=== PATIENT | female | born 1950 | race Caucasian/White ===

== ENCOUNTER → 2016-06-05 | Outpatient (CLI) | payer MEDICARE, MEDICAID ==
[~2016-06-05] MED LIST: ASPI-515 PO; CYCL-259 PO; IBUP800T PO; LISI-167 PO; MECL25TA4 PO; SIMV40TA3 PO
== END | disposition home or self-care (01) ==
LOC: CFH 09:02
PROVIDERS: ATTEND Internal Medicine
DX: M19.032 Primary osteoarthritis, left wrist (principal); M25.561 Pain in right knee; M25.562 Pain in left knee
CPT/HCPCS: 73523

== ENCOUNTER → 2016-06-19 | Outpatient (CLI) | payer MEDICARE, MEDICAID | END | disposition home or self-care (01) | LOC: CFH 08:41 | PROVIDERS: ATTEND Internal Medicine | DX: Z12.31 Encounter for screening mammogram for malignant neoplasm of breast (principal); M81.0 Age-related osteoporosis without current pathological fracture | CPT/HCPCS: 77080; G0202 ==

== ENCOUNTER → 2017-04-12 | Outpatient (CLI) | payer MEDICARE, MEDICAID ==
[~2017-04-12] MED LIST changes: +ALBU18HF INH; +GABA-826 PO; +IBUP-1223 PO; -IBUP800T PO; +TRAM50TA2 PO
== END | disposition home or self-care (01) ==
LOC: CFH 07:31
PROVIDERS: ATTEND Internal Medicine
DX: G31.89 Other specified degenerative diseases of nervous system (principal); M47.892 Other spondylosis, cervical region; M48.02 Spinal stenosis, cervical region; R20.2 Paresthesia of skin; M79.602 Pain in left arm
CPT/HCPCS: 70551; 72141

== ENCOUNTER 2017-05-04 22:52 | Emergency (ER) | payer MEDICARE, MEDICAID ==
[~2017-05-04] VITALS: Ht 175.3 cm; Wt 97.0 kg
[2017-05-04] MEDS ORDERED: SODIUM CHLORIDE 0.9% 1,000ML IV ONE (23:30)
[2017-05-04] MEDS ORDERED: SODIUM CHLORIDE FLUSH 10ML SYR IVF ONE (23:30)
[2017-05-04] MEDS ORDERED: KETOROLAC 30 MG/1 ML IVPush ONE (23:30)
[2017-05-04] MEDS ORDERED: ONDANSETRON 2MG/ML, 2ML IVPush ONE (23:30)
[2017-05-04 23:35] LABS: MICROSCOPIC AUTO
[2017-05-04 23:42] LABS: CULTURE INDICATED? YES
[2017-05-05] MEDS ORDERED: ONDANSETRON 2MG/ML, 2ML ONE (00:03)
[2017-05-05] MEDS ORDERED: KETOROLAC 30 MG/1 ML ONE (00:03)
[2017-05-05 00:06] LABS: BASOPHILS # (AUTO) 0.03 x10^3/uL (0-0.1); BASOPHILS % (AUTO) 0 % (0-1); EOSINOPHILS # (AUTO) 0.17 x10^3/uL (0-0.4); EOSINOPHILS % (AUTO) 2 % (1-7); LYMPHOCYTES # (AUTO) 2.32 x10^3/uL (1-3.4); LYMPHOCYTES % (AUTO) 22 % (22-44); MD NO; MEAN CORPUSCULAR HGB CONC 33.9 g/dL (32.4-35.8); MEAN CORPUSCULAR VOLUME 94.3 fL (80-100); MONOCYTES # (AUTO) 1.11 x10^3/uL (0.2-0.8); MONOCYTES % (AUTO) 10 % (2-9); NEUTROPHILS # (AUTO) 7.14 x10^3/uL (1.8-6.8); NEUTROPHILS % (AUTO) 66 % (42-75); PLATELET COUNT 210 x10^3/uL (130-400); RED BLOOD COUNT 4.47 x10^6/uL (3.82-5.3); RED CELL DISTRIBUTION WIDTH 14.5 % (9.6-15.2)
[2017-05-05 00:18] LABS: ALANINE AMINOTRANSFERASE 13 U/L (12-78); ALBUMIN 3.4 g/dL (3.4-5.0); ANION GAP 6 mmol/L (5-15); CALCIUM 8.7 mg/dL (8.5-10.1); CHLORIDE 109 mmol/L (98-107); CREATININE 0.82 mg/dL (0.55-1.02)
[2017-05-05 00:20] LABS: ALKALINE PHOSPHATASE 114 U/L (45-117); BILIRUBIN,TOTAL 0.3 mg/dL (0.2-1.0); TOTAL PROTEIN 6.9 g/dL (6.4-8.2)
[2017-05-05 01:39] VITALS: BP 133/84
[2017-05-05] MEDS ORDERED: CEFTRIAXONE PMX 1GM/50ML 50 ML ONE (02:13)
[2017-05-05] MEDS ORDERED: CEFTRIAXONE PMX 1GM/50ML 50 ML IV ONE (02:30)
== END 2017-05-05 02:42 | disposition home or self-care (01) ==
LOC: ED 05-05 01:34
DX: N30.91 Cystitis, unspecified with hematuria (principal); I10 Essential (primary) hypertension; E78.5 Hyperlipidemia, unspecified; E11.9 Type 2 diabetes mellitus without complications; G89.29 Other chronic pain; F17.210 Nicotine dependence, cigarettes, uncomplicated; N10 Acute pyelonephritis; Z87.442 Personal history of urinary calculi
CPT/HCPCS: 36415; 74176; 80053; 81001; 85025; 87077; 87086; 87186; 96361; 96374; 96375; 99285; J1885; J2405; J7030

== ENCOUNTER 2017-05-21 17:17 | Emergency (ER) | payer MEDICARE, MEDICAID ==
[~2017-05-21] VITALS: Ht 172.7 cm; Wt 96.0 kg
[2017-05-21] MEDS ORDERED: SODIUM CHLORIDE FLUSH 10ML SYR IVF ONE ×2 (17:30→19:00)
[2017-05-21 17:55] LABS: BASOPHILS # (AUTO) 0.09 x10^3/uL (0-0.1); BASOPHILS % (AUTO) 1 % (0-1); EOSINOPHILS # (AUTO) 0.18 x10^3/uL (0-0.4); EOSINOPHILS % (AUTO) 2 % (1-7); LYMPHOCYTES # (AUTO) 2.09 x10^3/uL (1-3.4); LYMPHOCYTES % (AUTO) 20 % (22-44); MD NO; MEAN CORPUSCULAR HEMOGLOBIN 31.4 pg (27.0-34.8); MEAN CORPUSCULAR HGB CONC 33.4 g/dL (32.4-35.8); MEAN CORPUSCULAR VOLUME 94.1 fL (80-100); MEAN PLATELET VOLUME 9.9 fL (7.4-10.4); MONOCYTES # (AUTO) 0.76 x10^3/uL (0.2-0.8); MONOCYTES % (AUTO) 7 % (2-9); NEUTROPHILS # (AUTO) 7.21 x10^3/uL (1.8-6.8); NEUTROPHILS % (AUTO) 70 % (42-75); PLATELET COUNT 291 x10^3/uL (130-400); RED BLOOD COUNT 4.71 x10^6/uL (3.82-5.3)
[2017-05-21] MEDS ORDERED: KETOROLAC 30 MG/1 ML ONE (17:59)
[2017-05-21] MEDS ORDERED: KETOROLAC 60 MG/2 ML IM ONE (18:00)
[2017-05-21] MEDS ORDERED: KETOROLAC 30 MG/1 ML IVPush ONE (18:00)
[2017-05-21 18:06] LABS: ALBUMIN 3.8 g/dL (3.4-5.0); ANION GAP 9 mmol/L (5-15); CHLORIDE 106 mmol/L (98-107); CREATININE 0.88 mg/dL (0.55-1.02)
[2017-05-21 18:10] LABS: CULTURE INDICATED? YES; MICROSCOPIC INDICATED
[2017-05-21] MEDS ORDERED: CEFTRIAXONE PMX 1GM/50ML 50 ML ONE (18:54)
[2017-05-21] MEDS ORDERED: CEFTRIAXONE PMX 1GM/50ML 50 ML IV ONE (19:00)
[2017-05-21] MEDS ORDERED: PHENAZOPYRIDINE 200 MG TABLET ONE (19:09)
[2017-05-21] MEDS ORDERED: PHENAZOPYRIDINE 200 MG TABLET PO ONE (19:30)
[2017-05-21 19:51] VITALS: BP 128/69
== END 2017-05-21 20:05 | disposition home or self-care (01) ==
LOC: ED 18:42
DX: N10 Acute pyelonephritis (principal); I10 Essential (primary) hypertension; E11.9 Type 2 diabetes mellitus without complications; Z90.49 Acquired absence of other specified parts of digestive tract; Z88.5 Allergy status to narcotic agent
CPT/HCPCS: 36415; 74176; 80048; 81001; 82040; 85025; 87077; 87086; 96365; 96372; 99285; J0696; J1885; 87186

== ENCOUNTER → 2017-09-02 | Outpatient (CLI) | payer MEDICARE, MEDICAID | END | disposition home or self-care (01) | LOC: CFH 08:09 | PROVIDERS: ATTEND Internal Medicine | DX: N20.2 Calculus of kidney with calculus of ureter (principal) | CPT/HCPCS: 74018 ==

== ENCOUNTER 2018-04-22 15:56 | Inpatient (IN) | payer MEDICARE, MEDICAID ==
[~2018-04-22] VITALS: Ht 172.7 cm; Wt 99.5 kg
--- NOTE | 2018-04-22 16:21 | NUR ---
PT SLIGHTLY HYPOXIC, PLACED ON 02 VIA NC 2L
[2018-04-22] MEDS ORDERED: ALBUTEROL/IPRATROPIUM 2.5MG/0.5MG, 3 ML NPPB ONE (16:30)
[2018-04-22] MEDS ORDERED: SODIUM CHLORIDE FLUSH 10ML SYR IVF ONE (16:30)
[2018-04-22] MEDS: PLEASE ENTER HEIGHT AND WEIGHT MC SCH (16:30)
[2018-04-22 16:49] LABS: BASOPHILS # (AUTO) 0.05 x10^3/uL (0-0.1); BASOPHILS % (AUTO) 1 % (0-1); EOSINOPHILS # (AUTO) 0.09 x10^3/uL (0-0.4); EOSINOPHILS % (AUTO) 1 % (1-7); LYMPHOCYTES # (AUTO) 1.96 x10^3/uL (1-3.4); LYMPHOCYTES % (AUTO) 30 % (22-44); MD NO; MEAN CORPUSCULAR HEMOGLOBIN 30.9 pg (27.0-34.8); MEAN CORPUSCULAR HGB CONC 33.9 g/dL (32.4-35.8); MEAN CORPUSCULAR VOLUME 91.3 fL (80-100); MEAN PLATELET VOLUME 10.1 fL (7.4-10.4); MONOCYTES # (AUTO) 0.68 x10^3/uL (0.2-0.8); MONOCYTES % (AUTO) 10 % (2-9); NEUTROPHILS # (AUTO) 3.71 x10^3/uL (1.8-6.8); NEUTROPHILS % (AUTO) 57 % (42-75); PLATELET COUNT 177 x10^3/uL (130-400); RED CELL DISTRIBUTION WIDTH 14.5 % (9.6-15.2)
[2018-04-22 16:56] LABS: ALANINE AMINOTRANSFERASE 13 U/L (12-78); ALBUMIN 3.4 g/dL (3.4-5.0); ANION GAP 5 mmol/L (5-15); CALCIUM 8.5 mg/dL (8.5-10.1); CHLORIDE 115 mmol/L (98-107); CREATININE 0.73 mg/dL (0.55-1.02)
[2018-04-22 17:00] LABS: ALKALINE PHOSPHATASE 122 U/L (45-117); BILIRUBIN,TOTAL 0.3 mg/dL (0.2-1.0); TOTAL PROTEIN 6.7 g/dL (6.4-8.2); TROPONIN I < 0.015 ng/mL (0.000-0.045)
[2018-04-22] MEDS ORDERED: ALBUTEROL/IPRATROPIUM 2.5MG/0.5MG, 3 ML ONE (17:32)
[2018-04-22] MEDS ORDERED: PHEN100C PO (17:41)
[2018-04-22] MEDS ORDERED: CYCL7.5T25 PO (17:41)
[2018-04-22] MEDS ORDERED: TRAZ-137 PO (17:41)
--- NOTE | 2018-04-22 17:41 | NUR ---
PT TO ROOM FROM LOBBY BY WHEELCHAIR WITH FAMILY AND TECH. PT SITTING UP IN [facility]. PT CO COUGH X 1.5 WEEKS W/ INTERMITTENT CP. CP RADIATES TO L ARM. NO CAUSATIVE OR RELIEVING FACTORS. +PRODUCTIVE COUGH W/ WHITE/CLEAR PHLEGM. PT REPORTS BEING SEEN ONE WEEK AGO FOR SAME, RX'D ABX AND STEROID WO IMPROVEMENT. DENIES FEVER/N/V/DIAPHORESIS/LE SWELLING OR PAIN. FAMILY AT BEDSIDE. BP/SPO2/ECG MONITORING IN PLACE. NSR ON MONITOR. ASA 81MG TAKEN DAILY.
--- NOTE | 2018-04-22 18:01 | NUR ---
ERP AT BEDSIDE FOR INITIAL ASSESSMENT
--- NOTE | 2018-04-22 18:13 | NUR ---
PT AMBULATED STEADILY WHILE ON SPO2 MONITORING. SPO2 ABOVE 90% WITH ACTIVITY. INCREASED WOB NOTED. ERP AWARE. AWAITING DISPO
[2018-04-22] MEDS ORDERED: KETOROLAC 30 MG/1 ML IV PRN (19:00)
[2018-04-22] MEDS ORDERED: ACETAMINOPHEN 325 MG TABLET PO PRN (19:00)
[2018-04-22] MEDS ORDERED: hydrALAzine 20 MG/ML, 1ML IVPush PRN (19:00)
[2018-04-22] MEDS ORDERED: ONDANSETRON 2MG/ML, 2ML IVPush PRN (19:00)
[2018-04-22] MEDS ORDERED: POLYETHYLENE GLYCOL 17 GM PACKET PO PRN (19:00)
[2018-04-22] MEDS: SODIUM CHLORIDE 0.9% 1,000 ML IV SCH (22:23)
[2018-04-22] MEDS ORDERED: ALBUTEROL SULFATE 2.5 MG/3 ML NPPB PRN (22:30)
[2018-04-22] MEDS ORDERED: MECLIZINE CHEWABLE 25 MG TAB PO PRN (23:00)
[2018-04-22] MEDS: BENZONATATE 100 MG CAPSULE PO SCH (23:22)
[2018-04-22] MEDS: TRAZODONE 50MG TABLET PO SCH (23:22)
[2018-04-22] MEDS: HYDROcodone/CHLORPHENIR ORAL SUSP PO SCH (23:22)
[2018-04-22] MEDS: methylPREDNISolone SOD SUCC 125 MG/2 ML IVPush SCH (23:23)
[2018-04-22] MEDS: GABAPENTIN 100 MG CAPSULE PO SCH (23:23)
[2018-04-22] MEDS: ENOXAPARIN 40 MG/0.4 ML SQ SCH (23:23)
[2018-04-22] MEDS: SIMVASTATIN 40 MG TABLET PO SCH (23:23)
[2018-04-22 23:33] VITALS: BP 113/71
[2018-04-23 00:19] LABS: TROPONIN I < 0.015 ng/mL (0.000-0.045)
[2018-04-23] MEDS: PLEASE ENTER HEIGHT AND WEIGHT MC SCH ×3 (00:23→14:44)
[2018-04-23 01:16] LABS: RAPID INFLUENZA A Negative (Negative); RAPID INFLUENZA B Negative (Negative)
[2018-04-23] MEDS: methylPREDNISolone SOD SUCC 125 MG/2 ML IVPush SCH ×3 (05:19→20:22)
[2018-04-23 06:16] LABS: TROPONIN I < 0.015 ng/mL (0.000-0.045)
[2018-04-23 07:50] VITALS: BP 131/83
[2018-04-23] MEDS ORDERED: REGADENOSON 0.4 MG/5 ML SYRINGE ONE (08:27)
[2018-04-23] MEDS: LISINOPRIL 10 MG TABLET PO SCH (08:51)
[2018-04-23] MEDS ORDERED: CYCLOBENZAPRINE 10 MG TABLET PO PRN (09:00)
[2018-04-23] MEDS: SODIUM CHLORIDE 0.9% 1,000 ML IV SCH (13:00)
[2018-04-23] MEDS: BENZONATATE 100 MG CAPSULE PO SCH ×3 (13:15→20:24)
[2018-04-23] MEDS: PHENYTOIN 100 MG CAPSULE PO SCH (13:15)
[2018-04-23] MEDS: GABAPENTIN 100 MG CAPSULE PO SCH ×3 (13:15→20:23)
[2018-04-23 14:00] VITALS: BP 127/74
[2018-04-23] MEDS: ASPIRIN 81 MG TABLET EC PO SCH (14:00)
[2018-04-23] MEDS ORDERED: AZITHROMYCIN 500 MG in SODIUM CHLORIDE 0.9% 250 ML IV SCH (19:00)
[2018-04-23] MEDS: SIMVASTATIN 40 MG TABLET PO SCH (20:24)
[2018-04-23] MEDS: TRAZODONE 50MG TABLET PO SCH (20:24)
[2018-04-23 20:32] VITALS: BP 155/69
[2018-04-23] MEDS: HYDROcodone/CHLORPHENIR ORAL SUSP PO SCH (21:16)
[2018-04-23] MEDS: ENOXAPARIN 40 MG/0.4 ML SQ SCH (21:17)
[2018-04-24 01:23] VITALS: BP 124/81
[2018-04-24] MEDS: methylPREDNISolone SOD SUCC 125 MG/2 ML IVPush SCH ×3 (01:46→13:24)
[2018-04-24] MEDS: SODIUM CHLORIDE 0.9% 1,000 ML IV SCH (06:25)
[2018-04-24 07:50] VITALS: BP 128/72
[2018-04-24] MEDS: PHENYTOIN 100 MG CAPSULE PO SCH (08:07)
[2018-04-24] MEDS: BENZONATATE 100 MG CAPSULE PO SCH (08:07)
[2018-04-24] MEDS: ASPIRIN 81 MG TABLET EC PO SCH (08:07)
[2018-04-24] MEDS: GABAPENTIN 100 MG CAPSULE PO SCH (08:07)
[2018-04-24] MEDS: LISINOPRIL 10 MG TABLET PO SCH (08:08)
[2018-04-24 13:00] VITALS: BP 122/73
[2018-04-24] MEDS ORDERED: METH4TAB2 PO (13:34)
[2018-04-24] MEDS ORDERED: FAMO10TA31 PO (13:34)
== END 2018-04-24 15:09 | disposition home health service (06) | DRG 189 ==
LOC: ED 18:20 → EDIP 18:28 → ED 18:28 → SUATTDRO 18:40 → 3NW 19:32 → 4WST 23:05 → DCLOUNGE 04-24 14:53
PROVIDERS: ADMIT Hospitalist; ATTEND Hospitalist
DX: J96.01 Acute respiratory failure with hypoxia (principal); J44.1 Chronic obstructive pulmonary disease with (acute) exacerbation; J44.0 Chronic obstructive pulmonary disease with (acute) lower respiratory infection; J20.9 Acute bronchitis, unspecified; E66.01 Morbid (severe) obesity due to excess calories; E11.9 Type 2 diabetes mellitus without complications; E78.5 Hyperlipidemia, unspecified; F17.200 Nicotine dependence, unspecified, uncomplicated; I10 Essential (primary) hypertension; Z87.442 Personal history of urinary calculi; Z88.5 Allergy status to narcotic agent; Z68.33 Body mass index [BMI] 33.0-33.9, adult
CPT/HCPCS: 36415; 71045; 78452; 80053; 83880; 84484; 85025; 87400; 93005; 93017; 94640; G0378; J0456; J1650; J2785; J7620; A9502; C9898; J2930; J7030; J7050; J7512

== ENCOUNTER 2018-06-23 09:44 | Outpatient (CLI) | payer MEDICARE, MEDICAID ==
[~2018-06-23 09:44] MED LIST changes: +CYCL7.5T25 PO; +FAMO10TA31 PO; +METH4TAB2 PO; +PHEN100C PO; +TRAZ-137 PO
== END 2018-06-23 23:59 | disposition home or self-care (01) ==
LOC: CFH 09:44
DX: Z12.31 Encounter for screening mammogram for malignant neoplasm of breast (principal); Z13.820 Encounter for screening for osteoporosis; N95.9 Unspecified menopausal and perimenopausal disorder
CPT/HCPCS: 77063; 77067; 77080

== ENCOUNTER → 2019-09-02 | Outpatient (CLI) | payer MEDICARE, MEDICAID ==
[~2019-09-02] MED LIST changes: +MECL-101 PO; -MECL25TA4 PO; +SIMV40TA20 PO; -SIMV40TA3 PO; -TRAZ-137 PO; +TRAZ-175 PO
== END | disposition home or self-care (01) ==
LOC: CFH 10:46
PROVIDERS: ATTEND Registered Nurse
DX: Z12.2 Encounter for screening for malignant neoplasm of respiratory organs (principal); J43.2 Centrilobular emphysema; I25.10 Atherosclerotic heart disease of native coronary artery without angina pectoris; F17.210 Nicotine dependence, cigarettes, uncomplicated; Z68.34 Body mass index [BMI] 34.0-34.9, adult
CPT/HCPCS: G0297

== ENCOUNTER 2020-08-03 08:23 | Outpatient (CLI) | payer MEDICARE, MEDICAID ==
[~2020-08-03 08:23] MED LIST changes: -ASPI-515 PO; +ASPI-963 PO; -CYCL-259 PO; +CYCL10TA2 PO
== END 2020-08-03 23:59 | disposition home or self-care (01) ==
LOC: RAD 08:23
PROVIDERS: ATTEND Registered Nurse
DX: Z12.2 Encounter for screening for malignant neoplasm of respiratory organs (principal); R91.8 Other nonspecific abnormal finding of lung field; J43.9 Emphysema, unspecified; F17.210 Nicotine dependence, cigarettes, uncomplicated
CPT/HCPCS: 71271

== ENCOUNTER → 2020-11-09 | Outpatient (CLI) | payer MEDICARE, MEDICAID | END | disposition home or self-care (01) | LOC: RAD 13:15 | PROVIDERS: ATTEND Psychiatry & Neurology Neurology | DX: R51.9 Headache, unspecified (principal) | CPT/HCPCS: 70551 ==